=== PATIENT | female | born 1950 | race Caucasian/White ===

== ENCOUNTER → 2020-11-19 10:20 | Outpatient (CLI) | payer MEDICARE | END | disposition home or self-care (01) | LOC: D.HCCARDIO 09:00 → D.HCCECHO 09:30 → D.HCCARDIO 10:20 | PROVIDERS: ATTEND Internal Medicine Cardiovascular Disease | DX: I25.10 Atherosclerotic heart disease of native coronary artery without angina pectoris (principal) ==